=== PATIENT | female | born 1955 ===

== ENCOUNTER 2022-06-15 11:15 | Inpatient (IN) | payer OTHER ==
[2022-06-15] MEDS ORDERED: SYNTHROID200 MCG PO (13:40)
[2022-06-15] MEDS ORDERED: HYZAAR 100-12.1 EACH PO (13:41)
[2022-06-15] MEDS ORDERED: DOXEPIN HC10 MG/1 ML PO (13:41)
[2022-06-15] MEDS ORDERED: HUMULIN 70100 UNIT/2 ×2 (13:42→13:43)
[2022-06-20] MEDS ORDERED: DOXEPIN HCL10 MG PO (08:59)
== END 2022-06-29 12:14 | disposition home or self-care (01) | DRG 329 ==
LOC: SURG 06-20 06:50 → O/R 06-20 06:50 → SURG 06-20 08:45
PROVIDERS: ADMIT Surgery; ATTEND Surgery
PROC: 07BB4ZZ Excision of Mesenteric Lymphatic, Percutaneous Endoscopic Approach (ICD-10-PCS; 2022-06-20)
PROC: 0DTF4ZZ Resection of Right Large Intestine, Percutaneous Endoscopic Approach (ICD-10-PCS; principal; 2022-06-20 08:45)
PROC: 4A12X4Z Monitoring of Cardiac Electrical Activity, External Approach (ICD-10-PCS; 2022-06-21)
PROC: 02HV33Z Insertion of Infusion Device into Superior Vena Cava, Percutaneous Approach (ICD-10-PCS; 2022-06-23)
PROC: B24BZZZ Ultrasonography of Heart with Aorta (ICD-10-PCS; 2022-06-23)
PROC: BW24ZZZ Computerized Tomography (CT Scan) of Chest and Abdomen (ICD-10-PCS; 2022-06-23)
DX: C18.0 Malignant neoplasm of cecum (principal); A48.0 Gas gangrene; I21.4 Non-ST elevation (NSTEMI) myocardial infarction; R15.9 Full incontinence of feces; D12.1 Benign neoplasm of appendix; I48.0 Paroxysmal atrial fibrillation; R09.02 Hypoxemia; D64.9 Anemia, unspecified; I10 Essential (primary) hypertension; E78.5 Hyperlipidemia, unspecified; E03.9 Hypothyroidism, unspecified; E11.65 Type 2 diabetes mellitus with hyperglycemia; Z79.4 Long term (current) use of insulin; Z20.822 Contact with and (suspected) exposure to COVID-19